=== PATIENT | female | born 1960 | race Caucasian/White ===

== ENCOUNTER 2019-06-10 17:32 | Inpatient (IN) | payer OTHER ==
[~2019-06-10] VITALS: Ht 162.6 cm; Wt 88.1 kg
[2019-06-10 17:43] VITALS: BP 104/65
[2019-06-10] MEDS ORDERED: ZESTRIL10 MG PO (19:04)
[2019-06-10] MEDS ORDERED: ATORVASTATIN CA20 M1 PO (19:04)
[2019-06-10] MEDS ORDERED: ZOLOFT25 MG PO (19:07)
[2019-06-10] MEDS ORDERED: PROTONIX40 MG/Pac1 PO (19:07)
[2019-06-10] MEDS ORDERED: ZOL100 PO (19:08)
[2019-06-10 20:07] VITALS: BP 104/63
[2019-06-10 21:13] LABS: CHOLESTEROL/HDL RATIO 3.4; PHOSPHOROUS 3.8 mg/dL (2.5-4.9)
[2019-06-10 21:19] LABS: FREE T4 1.01 ng/dL (0.76-1.46); T4(THYROXINE) 6.1 ug/dL (4.7-13.3)
[2019-06-10 21:21] LABS: T3 TOTAL 1.11 ng/mL
[2019-06-11 04:57] VITALS: BP 116/72
[2019-06-11 06:31] LABS: BASOPHIL % 0.5 % (0-2); PLATELET COUNT 188 x10^3mcL (130-400); RED CELL DISTRIBUTION WIDTH 13.8 % (11.5-14.5)
[2019-06-11 07:10] LABS: CALCIUM 9.3 mg/dL (8.5-10.1); CARBON DIOXIDE 29.9 mmol/L (21-32); CHLORIDE SERUM 104 mmol/L (98-107); CREATININE SERUM 0.5 mg/dL (0.6-1.0); GFR1 > 60 mL/min; GLUCOSE SERUM 186 mg/dL (74-106); PHOSPHOROUS 4.2 mg/dL (2.5-4.9); POTASSIUM SERUM 4.4 mmol/L (3.5-5.1); SODIUM SERUM 141 mmol/L (136-145)
[2019-06-11 08:45] VITALS: BP 110/79
[2019-06-11 12:17] VITALS: BP 112/74
[2019-06-11 12:35] LABS: microscopic required? NO
[2019-06-11 12:50] LABS: UA SPECIFIC GRAVITY 1.025 (1.005-1.035); urine erythrocyte NEGATIVE (NEGATIVE)
[2019-06-11 13:05] LABS: AMPHETAMINE QUAL UR NONE DETECTED (See below)
[2019-06-11 17:50] VITALS: BP 123/76
[2019-06-11 19:59] LABS: BASOPHIL % 0.6 % (0-2); PLATELET COUNT 214 x10^3mcL (130-400); RED CELL DISTRIBUTION WIDTH 14.1 % (11.5-14.5)
[2019-06-11 20:17] LABS: CALCIUM 9.3 mg/dL (8.5-10.1); CARBON DIOXIDE 27.9 mmol/L (21-32); CHLORIDE SERUM 103 mmol/L (98-107); CREATININE SERUM 0.6 mg/dL (0.6-1.0); GFR1 > 60 mL/min; GLUCOSE SERUM 221 mg/dL (74-106); POTASSIUM SERUM 4.1 mmol/L (3.5-5.1); SODIUM SERUM 137 mmol/L (136-145)
[2019-06-11 20:19] VITALS: BP 102/63
[2019-06-12] VITALS (16 sets, daily range): BP systolic 97–127; BP diastolic 63–76
[2019-06-12 06:58] LABS: BASOPHIL % 0.4 % (0-2); PLATELET COUNT 223 x10^3mcL (130-400); RED CELL DISTRIBUTION WIDTH 13.6 % (11.5-14.5)
[2019-06-12 07:14] LABS: CALCIUM 8.9 mg/dL (8.5-10.1); CARBON DIOXIDE 31.4 mmol/L (21-32); CHLORIDE SERUM 103 mmol/L (98-107); CREATININE SERUM 0.6 mg/dL (0.6-1.0); GFR1 > 60 mL/min; GLUCOSE SERUM 186 mg/dL (74-106); POTASSIUM SERUM 4.5 mmol/L (3.5-5.1); SODIUM SERUM 140 mmol/L (136-145)
[2019-06-13 05:33] VITALS: BP 108/72
[2019-06-13 08:01] VITALS: BP 115/74
[2019-06-13] MEDS ORDERED: ASPIR 8181 MG PO (10:06)
[2019-06-13] MEDS ORDERED: LIPI20 PO (10:06)
[2019-06-13 10:42] VITALS: BP 115/74
[2019-06-13] MEDS ORDERED: XARELTO20 M1 PO (10:49)
== END 2019-06-13 14:07 | disposition home or self-care (01) | DRG 282 ==
LOC: DU 17:32
PROVIDERS: Internal Medicine Geriatric Medicine; ADMIT Family Medicine
PROC: B2111ZZ Fluoroscopy of Multiple Coronary Arteries using Low Osmolar Contrast (ICD-10-PCS; 2019-06-12)
PROC: 4A023N7 Measurement of Cardiac Sampling and Pressure, Left Heart, Percutaneous Approach (ICD-10-PCS; principal; 2019-06-12 07:15)
DX: I21.A1 Myocardial infarction type 2 (principal); E11.65 Type 2 diabetes mellitus with hyperglycemia; I48.0 Paroxysmal atrial fibrillation; E78.5 Hyperlipidemia, unspecified; F41.8 Other specified anxiety disorders; M79.7 Fibromyalgia; I10 Essential (primary) hypertension; F17.210 Nicotine dependence, cigarettes, uncomplicated; Z79.4 Long term (current) use of insulin; F32.9 Major depressive disorder, single episode, unspecified; F41.9 Anxiety disorder, unspecified; Z79.899 Other long term (current) drug therapy
CPT/HCPCS: CLHCL; 82962; 83880; 84439; C1760; C1769; C1894; G0378; J1644; J1650; J2001; J2250; J2270; J3010; J7030; J7040; Q0092; Q9967